=== PATIENT | female | born 1980 | race Caucasian/White ===

== ENCOUNTER → 2019-02-17 | Outpatient (CLI) | payer BC | END | disposition home or self-care (01) | LOC: U/S 09:02 | DX: R10.2 Pelvic and perineal pain (principal) | CPT/HCPCS: 76856 ==

== ENCOUNTER 2019-02-23 03:47 | Emergency (ER) | payer BC ==
[2019-02-23] MEDS: morphine 4 MG/ML VIAL IV (04:55)
[2019-02-23] MEDS: ONDANSETRON 4 MG INJ IV (04:55)
[2019-02-23] MEDS: SOD CHLORIDE 0.9% 1,000 ML IV (04:55)
[2019-02-23 05:02] LABS: ADD MAN DIFF? NO
[2019-02-23 05:06] LABS: WHITE BLOOD COUNT 12.3 10^3/ul (4.8-10.8)
[2019-02-23 05:06] LABS: BASOPHIL # 0.1 10^3/ul (0.0-0.1); BASOPHILS % 0.6 % (0.0-2.0); EOSINOPHILS % 0.2 % (0.0-7.0); HEMATOCRIT 37.9 % (37.0-47.0); HEMOGLOBIN 12.6 g/dl (12.0-16.0); LYMPHOCYTES # 2.7 10^3/ul (0.8-2.9); LYMPHOCYTES % 21.7 % (15.0-51.0); MEAN CORPUSCULAR HEMOGLOBIN 28.2 pg (29.0-33.0); MEAN CORPUSCULAR HGB CONC 33.2 g/dl (32.0-37.0); MEAN CORPUSCULAR VOLUME 84.8 fl (82.0-101.0); MEAN PLATELET VOLUME 10.9 fl (7.4-10.4); MONOCYTE # 0.6 10^3/ul (0.3-0.9); MONOCYTES % 4.9 % (0.0-11.0); NEUTROPHIL # 8.9 10^3/ul (1.6-7.5); NEUTROPHILS % 72.2 % (39.0-77.0); PLATELET COUNT 262 10^3/UL (140-415); RED BLOOD COUNT 4.47 10^6/ul (4.20-5.40); RED CELL DISTRIBUTION WIDTH 12.8 % (11.5-14.5)
[2019-02-23] MEDS: HYDROmorphONE 0.5 MG/0.5 ML SYG IV (05:34)
[2019-02-23] MEDS: FAMOTIDINE 20 MG INJ IV (05:34)
[2019-02-23 06:24] LABS: ADD UMIC YES; UR ASCORBIC ACID NEGATIVE (NEGATIVE); UR BACTERIA FEW /HPF (NONE SEEN); UR BILIRUBIN (Dip) NEGATIVE (NEGATIVE); UR BLOOD (Dip) NEGATIVE (NEGATIVE); UR CLARITY SLIGHTLY CLOUDY (CLEAR); UR COLOR YELLOW (YELLOW); UR GLUCOSE (Dip) NEGATIVE (NEGATIVE); UR KETONES (Dip) NEGATIVE (NEGATIVE); UR LEUKOCYTE ESTERASE (Dip) TRACE Leu/ul (NEGATIVE); UR MUCUS FEW /HPF (NONE SEEN); UR NITRITE (Dip) POSITIVE (NEGATIVE); UR RBC 0 /HPF (0-5); UR SPECIFIC GRAVITY (Dip) 1.013 (1.003-1.030); UR SQUAMOUS EPITHELIAL CELL FEW /HPF (FEW); UR TOTAL PROTEIN (Dip) NEGATIVE (NEGATIVE); UR UROBILINOGEN (Dip) NEGATIVE (NEGATIVE); UR WBC 10 /HPF (0-5)
[2019-02-23] MEDS: KETOROLAC 60 MG INJ IM (06:59)
[2019-02-23] MEDS: KETOROLAC 30 MG INJ IV (06:59)
[2019-02-23] MEDS: CEFTRIAXONE 1 GM/50 ML (PMX) 50 ML IVPB (06:59)
[2019-02-23 07:05] LABS: ALANINE AMINOTRANSFERASE 22 IU/L (13-69); ALBUMIN 4.3 g/dl (3.3-4.9); ALBUMIN/GLOBULIN RATIO 1.19; ALKALINE PHOSPHATASE 79 IU/L (42-121); ANION GAP 10 (5-13); ASPARTATE AMINO TRANSFERASE 23 IU/L (15-46); BILIRUBIN,INDIRECT 0.4 mg/dl (0-1.1); BILIRUBIN,TOTAL 0.4 mg/dl (0.2-1.3); BLOOD UREA NITROGEN 11 mg/dl (7-20); CALCIUM 9.5 mg/dl (8.4-10.2); CARBON DIOXIDE 24 mmol/L (21-31); CHLORIDE 109 mmol/L (97-110); CREATININE 0.61 mg/dl (0.44-1.00); Estimated GFR > 60 mL/min (>60); GLUCOSE 121 mg/dl (70-220); LIPASE 77 U/L (23-300); POTASSIUM 3.5 mmol/L (3.5-5.1); SODIUM 143 mmol/L (135-144); TOTAL PROTEIN 7.9 g/dl (6.1-8.1)
[2019-02-23] MEDS: DICYCLOMINE 10 MG CAP PO (07:13)
== END 2019-02-23 07:55 | disposition home or self-care (01) ==
LOC: FTE 03:47
DX: N39.0 Urinary tract infection, site not specified (principal); R10.2 Pelvic and perineal pain
CPT/HCPCS: 36415; 74176; 80053; 81001; 83690; 84703; 85025; 96361; 96365; 96375; 99285-25

== ENCOUNTER 2019-02-24 09:19 | Inpatient (IN) | payer BC ==
[~2019-02-24 09:19] MED LIST: CEFAZOLIN 2 GM/50 ML (PMX) 50 ML IVPB
[2019-02-24] MEDS: LACTATED RINGER'S 1,000 ML IV ×3 (10:10→23:04)
[2019-02-24] MEDS ORDERED: METOCLOPRAMIDE 10 MG INJ (11:29)
[2019-02-24] MEDS ORDERED: NEOSTIGMINE 3 MG/3 ML SYRINGE (11:29)
[2019-02-24] MEDS ORDERED: ONDANSETRON 4 MG INJ (11:29)
[2019-02-24] MEDS ORDERED: CEFAZOLIN 1 GM INJ (11:29)
[2019-02-24] MEDS ORDERED: ROCURONIUM 50 MG INJ (11:29)
[2019-02-24] MEDS ORDERED: LIDOCAINE 2% (SDV) 5 ML INJ (11:29)
[2019-02-24] MEDS ORDERED: PROPOFOL 20 ML (11:29)
[2019-02-24] MEDS ORDERED: SUCCINYLCHOLINE CHLORIDE 100 MG/5 ML SYG IV (11:29)
[2019-02-24] MEDS ORDERED: GLYCOPYRROLATE 0.4 MG INJ ×2 (11:29→11:53)
[2019-02-24] MEDS ORDERED: MEPERIDINE 100 MG INJ (11:33)
[2019-02-24] MEDS: SODIUM CL BACTERIOSTATIC 30 ML INJ (12:05)
[2019-02-24] MEDS: VASOPRESSIN 20 UNITS INJ (12:08)
[2019-02-24] MEDS ORDERED: MIDAZOLAM 1 MG/ML 2 ML INJ IV (13:00)
[2019-02-24] MEDS ORDERED: HYDROmorphONE 1 MG/5 ML IV SYRINGE IV (13:00)
[2019-02-24] MEDS ORDERED: DIPHENHYDRAMINE 50 MG INJ IV (13:00)
[2019-02-24] MEDS ORDERED: FENTAnyl 50 MCG/ML VIAL IV ×2 (13:00)
[2019-02-24] MEDS ORDERED: METOCLOPRAMIDE 10 MG INJ IV (13:00)
[2019-02-24] MEDS ORDERED: OXYCODONE/ACETAMINOPHEN (5/325) TAB PO (13:00)
[2019-02-24] MEDS: MEPERIDINE 25 MG INJ IV (13:25)
[2019-02-24] MEDS: HYDROmorphONE 1 MG/5 ML IV SYRINGE IV ×2 (13:25→13:40)
[2019-02-24] MEDS: ONDANSETRON 4 MG INJ IV (13:25)
[2019-02-24] MEDS: OXYCODONE/ACETAMINOPHEN (5/325) TAB PO ×3 (13:32→21:02)
[2019-02-24] MEDS: FENTAnyl 50 MCG/ML VIAL IV (13:50)
[2019-02-24] MEDS: KETOROLAC 30 MG INJ IV (15:46)
[2019-02-24] MEDS: HYDROmorphONE 2 MG/ML SYG IV (22:05)
[2019-02-24] MEDS ORDERED: HYDROmorphONE 1 MG/ML SYG IV (22:30)
[2019-02-25] MEDS: LACTATED RINGER'S 1,000 ML IV ×5 (01:58→22:27)
[2019-02-25] MEDS: HYDROmorphONE 2 MG/ML SYG IV ×3 (02:01→10:18)
[2019-02-25] MEDS: OXYCODONE/ACETAMINOPHEN (5/325) TAB PO ×2 (08:28→14:08)
[2019-02-25] MEDS: KETOROLAC 30 MG INJ IV (18:12)
[2019-02-25] MEDS: ONDANSETRON 4 MG INJ IV (19:04)
[2019-02-25] MEDS: FAMOTIDINE 20 MG INJ IV (20:42)
[2019-02-25] MEDS: LORAZEPAM 2 MG INJ IV (20:42)
[2019-02-25] MEDS: morphine 4 MG/ML VIAL IV (20:43)
[2019-02-25] MEDS: CEFTRIAXONE 2 GM/50 ML (PMX) 50 ML IVPB (22:27)
[2019-02-26] MEDS: BETHANECHOL 25 MG TAB PO ×4 (01:06→20:48)
[2019-02-26] MEDS: morphine 4 MG/ML VIAL IV ×2 (03:13→07:13)
[2019-02-26 05:33] LABS: ADD MAN DIFF? NO
[2019-02-26 05:37] LABS: BASOPHILS % 0.2 % (0.0-2.0); EOSINOPHILS # 0.1 10^3/ul (0.0-0.5); EOSINOPHILS % 1.2 % (0.0-7.0); HEMATOCRIT 29.8 % (37.0-47.0); HEMOGLOBIN 9.8 g/dl (12.0-16.0); LYMPHOCYTES # 2.1 10^3/ul (0.8-2.9); LYMPHOCYTES % 22.8 % (15.0-51.0); MEAN CORPUSCULAR HEMOGLOBIN 28.1 pg (29.0-33.0); MEAN CORPUSCULAR HGB CONC 32.9 g/dl (32.0-37.0); MEAN CORPUSCULAR VOLUME 85.4 fl (82.0-101.0); MEAN PLATELET VOLUME 11.3 fl (7.4-10.4); MONOCYTE # 0.7 10^3/ul (0.3-0.9); MONOCYTES % 7.3 % (0.0-11.0); NEUTROPHIL # 6.2 10^3/ul (1.6-7.5); NEUTROPHILS % 68.3 % (39.0-77.0); PLATELET COUNT 175 10^3/UL (140-415); RED BLOOD COUNT 3.49 10^6/ul (4.20-5.40); RED CELL DISTRIBUTION WIDTH 13.2 % (11.5-14.5)
[2019-02-26] MEDS ORDERED: PANTOPRAZOLE 40 MG INJ IV (06:00)
[2019-02-26] MEDS: LACTATED RINGER'S 1,000 ML IV (07:06)
[2019-02-26] MEDS: OXYCODONE/ACETAMINOPHEN (5/325) TAB PO ×5 (08:18→22:02)
[2019-02-26] MEDS: FAMOTIDINE 20 MG INJ IV ×2 (08:18→20:49)
[2019-02-26] MEDS: ONDANSETRON 4 MG INJ IV (16:59)
[2019-02-27] MEDS: OXYCODONE/ACETAMINOPHEN (5/325) TAB PO ×3 (01:38→13:25)
[2019-02-27] MEDS: FAMOTIDINE 20 MG INJ IV (08:51)
[2019-02-27] MEDS: BETHANECHOL 25 MG TAB PO ×2 (08:51→13:20)
[2019-02-27] MEDS: IBUPROFEN 800 MG TAB PO (11:21)
[2019-02-27] MEDS ORDERED: FAMOTIDINE 20 MG TAB PO (21:00)
== END 2019-02-27 15:20 | disposition home or self-care (01) | DRG 743 ==
LOC: SDS 09:19 → 2NE 15:15 → SDS 14:51 → 2NE 14:51
PROVIDERS: Obstetrics & Gynecology
PROC: 0UB90ZZ Excision of Uterus, Open Approach (ICD-10-PCS; principal; 2019-02-24 11:30)
DX: D25.9 Leiomyoma of uterus, unspecified (principal); K29.70 Gastritis, unspecified, without bleeding; R10.2 Pelvic and perineal pain; R39.198 Other difficulties with micturition; R11.2 Nausea with vomiting, unspecified
CPT/HCPCS: 85025; 87086; 88305